=== PATIENT | female | born 1955 ===

== ENCOUNTER → 2020-06-18 13:11 | Outpatient (CLI) | payer OTHER, SELFPAY ==
[2020-06-18 15:05] LABS: COVID19 -Nasal RAPID Negative (Negative)
== END ==
PROVIDERS: Visit Provider Physician Assistant
DX: Z20.822 Contact with and (suspected) exposure to COVID-19 (principal)
CPT/HCPCS: 87635; C9803

== ENCOUNTER 2020-06-20 09:48 | Day surgery (SDC) | payer OTHER, SELFPAY ==
[2020-06-20] VITALS (8 sets, daily range): BP systolic 93–121; BP diastolic 40–69; PULSE 58–63; RESP 8–16; TEMP 36.2–36.8; O2SAT 95–99; BMI 26.2
[2020-06-20] MEDS: SODIUM CHLORIDE 0.9% 1,000 ML 100 ML IV (10:14)
--- NOTE | 2020-06-20 11:58 | PM.HP.1 ---
History of Present Illness History of Present Illness Date Patient Seen: 06/20/20 Chief complaint: SCREENING COLONOSCOPY Narrative: Screening for colon cancer Patient History Family & Social History Social History: household members spouse Tobacco & Substance use: Smoking Status Former smoker alcohol intake current alcohol intake frequency 0-2 drinks per day Substance Use Type marijuana Meds Home Medications and Allergies Home Medications Medication Instructions Recorded Confirmed Type clobetasol [Temovate] 1 applic TOPICAL DAILY 06/20/20 06/20/20 History fluticasone propionate 1 spray INTRANASAL BID 06/20/20 06/20/20 History loratadine 10 mg PO DAILY 06/20/20 06/20/20 History Allergies Allergy/AdvReac Type Severity Reaction Status Date / Time Sulfa (Sulfonamide AdvReac Intermediate Rash Verified 06/20/20 10:06 Antibiotics) Exam Vital Signs (past 8 hours): - 06/20/20 10:06 Temperature 97.2 F L Pulse Rate 59 L Respiratory Rate 12 Blood Pressure 121/61 Pulse Oximetry 99 Oxygen Delivery Method Room Air Narrative Exam Narrative: Oropharynx free of lesions Chest clear to auscultation percussion Cardiac exam reveals no S3 or murmur Assessment & Plan Assessment & Plan narrative: Screening for colon cancer with colonoscopy. Risks, benefits, alternatives have been explained.
--- NOTE | 2020-06-20 11:59 | PM.OP.ENDO ---
Operative Date/Time/Diagnoses Date of procedure: 06/20/20 Pre-op diagnosis: See indication and findings Procedure & Clinicians Study performed: Colonoscopy Same procedure as scheduled: Yes Indications: Screening Surgeon: Lia Martin Procedure Notes Procedure in detail: After informed consent was obtained the patient was placed in left lateral decubitus position. The video colonoscope was introduced the rectum slowly advanced cecum. Preparation was good. On slow withdrawal mucosa was carefully examined. Scope was removed. The patient tolerated procedure well. Blood loss none Complications none Sedation Total sedation time 21 minutes Fentanyl 100 mg versed 5 mg IV titration Findings 1. Moderate sigmoid diverticulosis 2. Otherwise negative colonoscopy to cecum Patient should have follow-up colonoscopy 10 years
[2020-06-20] MEDS: fentaNYL 250 MCG/5 ML INJ IV (12:04)
[2020-06-20] MEDS: MIDAZOLAM 5 MG/5 ML VIAL IV (12:18)
--- NOTE | 2020-06-20 12:28 | PM.OP.ENDO ---
Operative Date/Time/Diagnoses Date of procedure: 06/20/20 Pre-op diagnosis: See indication and findings Procedure & Clinicians Study performed: Colonoscopy Same procedure as scheduled: Yes Indications: Screening Surgeon: Lia Martin Procedure Notes Procedure in detail: After informed consent was obtained the patient was placed in left lateral decubitus position. The video colonoscope was introduced the rectum slowly advanced cecum. On slow withdrawal mucosa was carefully examined. Scope removed. Patient tolerated procedure well. Preparation was good. Blood loss none
--- NOTE | 2020-06-20 13:54 | SUR.PHASEII ---
Late entry: Pt wanting to go, tolerating fluids, belly soft. called, pt left unit in stable condition.
== END 2020-06-20 13:27 | disposition home or self-care (01) ==
PROVIDERS: Referring Provider Internal Medicine Gastroenterology; Visit Provider Internal Medicine Gastroenterology
PROC: 0DJD8ZZ Inspection of Lower Intestinal Tract, Via Natural or Artificial Opening Endoscopic (ICD-10-PCS; CPT 45378; principal; 2020-06-20 12:30)
DX: Z12.11 Encounter for screening for malignant neoplasm of colon (principal); K57.30 Diverticulosis of large intestine without perforation or abscess without bleeding
CPT/HCPCS: G0121; J2250; J3010